=== PATIENT | female | born 1950 | race Asian ===

== ENCOUNTER 2016-07-06 08:00 | Outpatient (CLI) | payer MEDICARE, MEDICAID | END 2016-07-06 08:01 | disposition home or self-care (01) | DX: E87.6 Hypokalemia (principal) ==

== ENCOUNTER 2016-07-06 08:00 | Outpatient (CLI) | payer MEDICARE, MEDICAID | END 2016-07-06 08:01 | disposition home or self-care (01) | DX: E87.6 Hypokalemia (principal) ==

== ENCOUNTER 2016-07-13 08:00 | Outpatient (CLI) | payer MEDICARE, MEDICAID | END 2016-07-13 08:01 | disposition home or self-care (01) | DX: E87.6 Hypokalemia (principal) ==

== ENCOUNTER 2016-07-13 08:00 | Outpatient (CLI) | payer MEDICARE, MEDICAID | END 2016-07-13 08:01 | disposition home or self-care (01) | DX: E87.6 Hypokalemia (principal) ==

== ENCOUNTER 2016-07-27 11:04 | Outpatient (CLI) | payer MEDICARE, MEDICAID | END 2016-07-27 11:05 | disposition home or self-care (01) | DX: E87.6 Hypokalemia (principal) ==

== ENCOUNTER 2016-08-10 | Emergency (ER) | payer MEDICARE, MEDICAID | END 2016-08-10 12:51 | disposition home or self-care (01) | DX: H54.12 Blindness, left eye, low vision right eye (principal) ==

== ENCOUNTER 2016-09-07 09:52 | Outpatient (CLI) | payer MEDICARE, MEDICAID | END 2016-09-07 09:53 | disposition home or self-care (01) | DX: E87.6 Hypokalemia (principal) ==

== ENCOUNTER 2016-12-31 10:57 | Outpatient (CLI) | payer MEDICARE, MEDICAID ==
[2016-12-31 15:50] LABS: CALCIUM 9.1 mg/dL (8.5-10.3); CREATININE 1.6 mg/dL (0.4-1.0); POTASSIUM 4.3 mmol/L (3.5-5.0)
== END 2016-12-31 10:58 | disposition home or self-care (01) ==
LOC: LAB.N 10:57
PROVIDERS: ATTEND Internal Medicine Nephrology
DX: N05.9 Unspecified nephritic syndrome with unspecified morphologic changes (principal)
CPT/HCPCS: 36415; 80048